=== PATIENT | female | born 1940 | race Two or more races ===

== ENCOUNTER 2017-11-22 08:34 | Outpatient (CLI) | payer OTHER | END 2017-11-22 10:42 | disposition home or self-care (01) | LOC: RAD 501 08:34 | DX: H25.13 Age-related nuclear cataract, bilateral (principal) ==

== ENCOUNTER 2019-05-10 10:15 | Outpatient (CLI) | payer OTHER | END 2019-05-10 10:22 | disposition home or self-care (01) | LOC: NUCLEAR 10:15 | DX: C64.2 Malignant neoplasm of left kidney, except renal pelvis (principal); C64.1 Malignant neoplasm of right kidney, except renal pelvis | CPT/HCPCS: 78803; A9503 ==

== ENCOUNTER 2019-06-16 14:26 | Outpatient (CLI) | payer OTHER | END 2019-06-16 14:27 | disposition home or self-care (01) | LOC: RAD 14:26 | DX: Z01.811 Encounter for preprocedural respiratory examination (principal) ==

== ENCOUNTER 2019-10-09 09:04 | Inpatient (IN) | payer OTHER ==
[~2019-10-09] VITALS: Ht 160 cm; Wt 63.5 kg
[2019-10-09] MEDS ORDERED: LEVOTHYROXINE25 MCG (09:13)
--- NOTE | 2019-10-09 09:14 | NUR ---
PTE REFIERE TENER DOLOR ABDOMINAL DIARREAS Y TAMBIEM PROBLEMAS CON LA ORINA.
[2019-10-09] MEDS ORDERED: LIPITOR 10MG (09:19)
--- NOTE | 2019-10-09 09:47 | NUR ---
PACIENTE ALERTA Y ORIENTADA EN [place] ESFERAS, RN L.KIM MALLY MUESTRAS DE [place] BAJO MEDIDAS ASEPTICAS Y CULTIVO DE [place] BAJO MEDIDAS ESTERILES. CANALIZA PACIENTE EN BRAZO NAMAN ANGIO 22 BAJO MEDIDAS ASEPTICAS, PATENTE LEÓN DE EDEMA Y ENROJECIMIENTO. SE ORIENTA PACIENTE A RUMA CULTIVOS DE [place] Y A RUMA CONTRASTE POR BOCA Y NOTIFICAR AL TERMINAR LA MISMA INDICA ENTENDER. PACIENTE BAJO OBSERVACION POR CAMBIOS.
--- NOTE | 2019-10-09 12:23 | NUR ---
DR. UPTON REEVALUA PTE. Y SE ORIENTA SOBRE TRATAMIENTO Y MEDICAMENTOS LOS CUALES SE ADM. IDALIA ORDEN MEDICA Y CONSULTA NOTIFICADA A DR. LEANDRA VAZQUEZ POR DR. UPTON.
--- NOTE | 2019-10-09 15:54 | NUR ---
PACIENTE FEMINA ALERTA Y ORIENTADA DEVIDAMENTE IDENTIFICADA EN COMPANIA DE FAMILIAR. SE RE ORIENTA SOBRE EL TRATAMIENTO ORDENADO POR EL MEDICO LA MISMA REFIERE ENTENDER. CONSULTADA CON JESS VAZQUEZ PARA DETERMINAR SI VA SER ADMITIDA. PACIENTE ESTABLE DENTRO DE FONSECA CONDICION Y SE MATHEW PRIVACIDAD Y SEGURIDAD EN TODO MOMENTO.
[2019-10-12] MEDS ORDERED: METRONIDAZOLE500 MG (14:37)
[2019-10-12] MEDS ORDERED: CIPROFLOXACIN750 MG (14:37)
[2019-10-20] MEDS ORDERED: FLAGYL500MG PO (17:04)
[2019-10-20] MEDS ORDERED: Lipitor 10MG TABLET PO (17:04)
[2019-10-20] MEDS ORDERED: LEVOTHYROXINE25 MCG PO (17:04)
[2019-10-20] MEDS ORDERED: INTESTINEX680 M1 PO (17:04)
[2019-10-20] MEDS ORDERED: PEPCID AC20 MG PO (17:04)
[2019-10-20] MEDS ORDERED: LEVAQUIN750 MG PO (17:04)
== END 2019-10-20 18:07 | disposition home or self-care (01) | DRG 392 ==
LOC: ER 09:04 → SURH 17:09 → SEC-K 17:09 → MEDI 17:09 → SURH 10-10 01:03 → MEDI 10-10 14:40
PROVIDERS: ADMIT Internal Medicine; ATTEND Internal Medicine
PROC: 8E0ZXY6 Isolation (ICD-10-PCS; principal; 2019-10-09)
DX: K57.32 Diverticulitis of large intestine without perforation or abscess without bleeding (principal); N39.0 Urinary tract infection, site not specified; C77.5 Secondary and unspecified malignant neoplasm of intrapelvic lymph nodes; R19.09 Other intra-abdominal and pelvic swelling, mass and lump; Z85.528 Personal history of other malignant neoplasm of kidney; D63.0 Anemia in neoplastic disease; E86.0 Dehydration; K42.9 Umbilical hernia without obstruction or gangrene

== ENCOUNTER 2019-12-14 13:25 | Inpatient (IN) | payer OTHER ==
[~2019-12-14] VITALS: Ht 160 cm; Wt 62.6 kg
[~2019-12-14 13:25] MED LIST: CIPROFLOXACIN750 MG; FLAGYL500MG PO; INTESTINEX680 M1 PO; LEVAQUIN750 MG PO; LEVOTHYROXINE25 MCG; LEVOTHYROXINE25 MCG PO; LIPITOR 10MG; Lipitor 10MG TABLET PO; METRONIDAZOLE500 MG; PEPCID AC20 MG PO
[2019-12-14] MEDS ORDERED: CIPRO500 MG (14:05)
[2019-12-14] MEDS ORDERED: TOPROL XL25 M1 (14:06)
[2019-12-14] MEDS ORDERED: RYTARY ER 23.71 EACH (14:06)
--- NOTE | 2019-12-14 14:19 | NUR ---
PTE REFIERE ABSSESO EN AREA DEL ABDOMEN SE JOYCE S/V YSE UBIAC EN AREA DE OBSERVACION
[2019-12-18] MEDS ORDERED: CARBIDOPA-LEVO1 EA10 (09:00)
== END 2019-12-18 14:52 | disposition home or self-care (01) | DRG 392 ==
LOC: ER 13:25 → SEC-K 15:49 → SURG 17:03 → SURH 12-15 16:47
PROVIDERS: ADMIT Surgery; ATTEND Surgery
PROC: 0W9H30Z Drainage of Retroperitoneum with Drainage Device, Percutaneous Approach (ICD-10-PCS; principal; 2019-12-15)
DX: K57.20 Diverticulitis of large intestine with perforation and abscess without bleeding (principal); E03.9 Hypothyroidism, unspecified; I10 Essential (primary) hypertension; Z85.528 Personal history of other malignant neoplasm of kidney; Z90.5 Acquired absence of kidney; Z20.828 Contact with and (suspected) exposure to other viral communicable diseases; B95.2 Enterococcus as the cause of diseases classified elsewhere

== ENCOUNTER 2019-12-22 11:58 | Outpatient (CLI) | payer OTHER ==
[~2019-12-22 11:58] MED LIST changes: +CARBIDOPA-LEVO1 EA10; +CIPRO500 MG; +RYTARY ER 23.71 EACH; +TOPROL XL25 M1
== END 2019-12-22 12:06 | disposition home or self-care (01) ==
LOC: LAB 11:58
PROVIDERS: ATTEND Surgery
DX: K57.20 Diverticulitis of large intestine with perforation and abscess without bleeding (principal); K43.0 Incisional hernia with obstruction, without gangrene; K43.2 Incisional hernia without obstruction or gangrene

== ENCOUNTER 2020-05-07 08:00 | Outpatient (CLI) | payer OTHER | END 2020-05-07 18:00 | disposition home or self-care (01) | LOC: PPH VACUNA 08:00 | PROVIDERS: ATTEND Emergency Medicine Pediatric Emergency Medicine | DX: Z23 Encounter for immunization (principal) ==

== ENCOUNTER 2021-01-21 08:00 | Outpatient (CLI) | payer OTHER | END 2021-01-21 08:30 | disposition home or self-care (01) | LOC: PPH VACUNA 08:00 | PROVIDERS: ATTEND Emergency Medicine Pediatric Emergency Medicine | DX: Z23 Encounter for immunization (principal) ==

== ENCOUNTER 2021-02-06 10:12 | Outpatient (CLI) | payer OTHER | END 2021-02-06 10:22 | disposition home or self-care (01) | LOC: RAD 10:12 | DX: I10 Essential (primary) hypertension (principal); Z01.811 Encounter for preprocedural respiratory examination ==

== ENCOUNTER → 2021-05-30 | Outpatient (CLI) | payer OTHER | END | disposition home or self-care (01) | LOC: NUCLEAR 09:52 | PROVIDERS: ATTEND Internal Medicine Sports Medicine | DX: I38 Endocarditis, valve unspecified (principal) ==

== ENCOUNTER 2021-08-19 08:00 | Outpatient (CLI) | payer OTHER | END 2021-08-19 08:30 | disposition home or self-care (01) | LOC: PPH VACUNA 08:00 | PROVIDERS: ATTEND Emergency Medicine Pediatric Emergency Medicine | DX: Z23 Encounter for immunization (principal) ==

== ENCOUNTER 2022-02-04 10:56 | Inpatient (IN) | payer OTHER ==
[~2022-02-04] VITALS: Ht 160 cm; Wt 54.4 kg
[2022-02-06] MEDS ORDERED: SERTRALINE HCL25 MG (09:36)
[2022-02-06] MEDS ORDERED: FAMOTIDINE20 MG (09:36)
[2022-02-06] MEDS ORDERED: CARBIDOPA-LEVO1 EA12 (09:36)
[2022-02-06] MEDS ORDERED: CLONAZEPAM0.5 MG (09:36)
[2022-02-06] MEDS ORDERED: AMANTADINE100 MG (09:37)
[2022-02-06] MEDS ORDERED: MELATONIN5 M2 (09:37)
[2022-02-06] MEDS ORDERED: SIMVASTATIN10 MG (09:37)
[2022-02-06] MEDS ORDERED: LOSARTAN POTASS50 MG (09:37)
[2022-02-10] MEDS ORDERED: LEVOTHYROXINE25 MCG PO (17:03)
[2022-02-10] MEDS ORDERED: POM (MEDICAMENTO EN PO (17:03)
== END 2022-02-10 22:10 | disposition home or self-care (01) | DRG 392 ==
LOC: ICU-2 10:56 → ICU 02-05 20:19 → MEDI 02-06 21:53
PROVIDERS: ADMIT Internal Medicine; ATTEND Internal Medicine
PROC: 4A12X4Z Monitoring of Cardiac Electrical Activity, External Approach (ICD-10-PCS; principal; 2022-02-04)
PROC: BW2110Z Computerized Tomography (CT Scan) of Abdomen and Pelvis using Low Osmolar Contrast, Unenhanced and Enhanced (ICD-10-PCS; 2022-02-07)
DX: K59.81 Ogilvie syndrome (principal); G20 Parkinson's disease; K57.30 Diverticulosis of large intestine without perforation or abscess without bleeding; R53.81 Other malaise; G24.9 Dystonia, unspecified; I10 Essential (primary) hypertension; K59.09 Other constipation; K31.84 Gastroparesis; K42.9 Umbilical hernia without obstruction or gangrene

== ENCOUNTER 2022-03-25 13:42 | Outpatient (CLI) | payer OTHER ==
[~2022-03-25 13:42] MED LIST changes: +AMANTADINE100 MG; +CARBIDOPA-LEVO1 EA12; +CLONAZEPAM0.5 MG; +FAMOTIDINE20 MG; +LOSARTAN POTASS50 MG; +MELATONIN5 M2; +POM (MEDICAMENTO EN PO; +SERTRALINE HCL25 MG; +SIMVASTATIN10 MG
== END 2022-03-25 13:52 | disposition home or self-care (01) ==
LOC: PPH VACUNA 13:42
PROVIDERS: ATTEND Emergency Medicine Pediatric Emergency Medicine
DX: Z23 Encounter for immunization (principal)

== ENCOUNTER 2022-05-05 10:50 | Inpatient (IN) | payer OTHER ==
[~2022-05-05] VITALS: Ht 160 cm; Wt 53.1 kg
[~2022-05-05 10:50] MED LIST changes: +LINZESS145 MCG PO
[2022-05-11] MEDS ORDERED: SERTRALINE HCL50 MG (10:04)
[2022-05-11] MEDS ORDERED: CARBIDOPA-LEVO1 EAC1 (10:04)
[2022-05-11] MEDS ORDERED: METOCLOPRAMIDE10 MG (10:04)
[2022-05-11] MEDS ORDERED: METOPROLOL SUCC25 MG (10:04)
[2022-05-19] MEDS ORDERED: POM (MEDICAMENTO EN PO (11:28)
[2022-05-19] MEDS ORDERED: Neurin-Sl Tablet Sl SL (11:28)
[2022-05-19] MEDS ORDERED: INTEGRA PLUS C1 EACH PO (11:28)
[2022-05-19] MEDS ORDERED: SERTRALINE HCL50 MG PO (11:28)
[2022-05-19] MEDS ORDERED: FOLIC ACID1 MG PO (11:28)
[2022-05-19] MEDS ORDERED: CHOLESTYRAMINE P4 GM PO (11:28)
== END 2022-05-19 23:02 | disposition home or self-care (01) | DRG 330 ==
LOC: MEDI 10:50 → O/R 05-07 10:11 → SURH 05-08 15:49
PROVIDERS: Surgery; ADMIT Internal Medicine; ATTEND Internal Medicine
PROC: 0DTN0ZZ Resection of Sigmoid Colon, Open Approach (ICD-10-PCS; 2022-05-06)
PROC: 0DBP0ZZ Excision of Rectum, Open Approach (ICD-10-PCS; 2022-05-06)
PROC: 0DTJ0ZZ Resection of Appendix, Open Approach (ICD-10-PCS; 2022-05-06)
PROC: 0D9H8ZZ Drainage of Cecum, Via Natural or Artificial Opening Endoscopic (ICD-10-PCS; 2022-05-06)
PROC: 0WQF0ZZ Repair Abdominal Wall, Open Approach (ICD-10-PCS; 2022-05-06)
PROC: 02HV33Z Insertion of Infusion Device into Superior Vena Cava, Percutaneous Approach (ICD-10-PCS; 2022-05-06)
PROC: 0D1M0Z4 Bypass Descending Colon to Cutaneous, Open Approach (ICD-10-PCS; principal; 2022-05-06 14:00)
PROC: 05HY33Z Insertion of Infusion Device into Upper Vein, Percutaneous Approach (ICD-10-PCS; 2022-05-11)
DX: K56.691 Other complete intestinal obstruction (principal); C18.9 Malignant neoplasm of colon, unspecified; N39.0 Urinary tract infection, site not specified; K43.9 Ventral hernia without obstruction or gangrene; G20 Parkinson's disease; K59.00 Constipation, unspecified; K59.81 Ogilvie syndrome; E87.6 Hypokalemia; I73.9 Peripheral vascular disease, unspecified

== ENCOUNTER 2022-08-03 10:40 | Outpatient (CLI) | payer OTHER ==
[~2022-08-03 10:40] MED LIST changes: +CARBIDOPA-LEVO1 EAC1; +CHOLESTYRAMINE P4 GM PO; +FOLIC ACID1 MG PO; +INTEGRA PLUS C1 EACH PO; +METOCLOPRAMIDE10 MG; +METOPROLOL SUCC25 MG; +Neurin-Sl Tablet Sl SL; +SERTRALINE HCL50 MG; +SERTRALINE HCL50 MG PO
== END 2022-08-03 10:43 | disposition home or self-care (01) ==
LOC: NUCLEAR 10:40
PROVIDERS: ATTEND Internal Medicine Sports Medicine
DX: I82.409 Acute embolism and thrombosis of unspecified deep veins of unspecified lower extremity (principal); R60.0 Localized edema

== ENCOUNTER 2022-11-02 05:45 | Day surgery (SDC) | payer OTHER | END 2022-11-02 11:35 | disposition home or self-care (01) | LOC: AMB-ENDOS 05:45 | PROVIDERS: ATTEND Surgery | DX: K57.30 Diverticulosis of large intestine without perforation or abscess without bleeding (principal); K57.20 Diverticulitis of large intestine with perforation and abscess without bleeding; Z93.3 Colostomy status; K43.2 Incisional hernia without obstruction or gangrene; I82.502 Chronic embolism and thrombosis of unspecified deep veins of left lower extremity; Z20.822 Contact with and (suspected) exposure to COVID-19 ==

== ENCOUNTER 2023-01-01 09:59 | Inpatient (IN) | payer OTHER ==
[~2023-01-01] VITALS: Ht 162.6 cm; Wt 49.9 kg
[2023-01-04 10:31] LABS: URINE APPEARANCE Clear; URINE BILIRRUBIN Small (NEGATIVE); URINE BLOOD Negative; URINE COLOR Orange; URINE GLUCOSE Negative (NEGATIVE); URINE LEUKOCYTE Moderate; URINE NITRATE Positive; URINE PROTEIN 30 (NEGATIVE); URINE UROBILINOGEN 0.2 E.U./dl
[2023-01-04 10:33] LABS: URINE BACTERIA 175.2 uL (0.0-1933); URINE EPITHELIAL CELLS 16.1 uL (0.0-38.8); URINE RBC 23.5 uL (0.0-20.8); URINE WBC 239.9 uL (0.0-23.2)
[2023-01-04 10:41] LABS: HEMATOCRIT 37.6 % (36.0-45.00); MEAN CELL VOLUME 94.5 fL (80.00-100.00); MEAN CORPUSCULAR HEMOGLOBIN 32.6 pg (27.00-32.0); MEAN CORPUSCULAR HGB CONC 34.5 g/dl (32.0-36.0); PLATELET COUNT 260 K/uL (150-450); RED BLOOD COUNT 3.98 M/uL (4.00-6.00); RED CELL DISTRIBUTION WIDTH 14.3 % (11.5-14.5)
[2023-01-04 11:10] LABS: ALBUMIN 3.9 gm/dL (3.4-5.0); BILIRUBIN TOTAL 0.65 mg/dL (0.3-1.2); CALCIUM 9.1 mg/dL (8.5-10.1); GFR 53.21; GLOBULINA 3.6 G/DL (2.4-3.5); POTASSIUM 4.62 mEq/L (3.5-5.1); TOTAL PROTEIN 7.5 gm/dL (6.4-8.2)
[2023-01-04 11:11] LABS: PARTIAL THROMBOPLASTIN TIME 24.4 SECONDS (22.0-34.0); PROTHROMBIN TIME 10.5 SECONDS (9.0-11.5)
[2023-01-04 11:24] LABS: URINE CRYSTALS FEW /HPF
[2023-01-11] MEDS ORDERED: CARBIDOPA-LEVO1 EAC8 (13:06)
[2023-01-11] MEDS ORDERED: ABANEU-SL TABL1 EACH (13:07)
[2023-01-11 17:34] LABS: HEMATOCRIT 37.7 % (36.0-45.00); HEMOGLOBIN 12.5 g/dL (12.0-15.00); MEAN CELL VOLUME 94.8 fL (80.00-100.00); MEAN CORPUSCULAR HEMOGLOBIN 31.5 pg (27.00-32.0); MEAN CORPUSCULAR HGB CONC 33.2 g/dl (32.0-36.0); PLATELET COUNT 235 K/uL (150-450); RED BLOOD COUNT 3.97 M/uL (4.00-6.00); RED CELL DISTRIBUTION WIDTH 14.1 % (11.5-14.5)
[2023-01-12 07:20] LABS: HEMATOCRIT 37.9 % (36.0-45.00); HEMOGLOBIN 12.6 g/dL (12.0-15.00); MEAN CELL VOLUME 96.3 fL (80.00-100.00); MEAN CORPUSCULAR HGB CONC 33.2 g/dl (32.0-36.0); PLATELET COUNT 247 K/uL (150-450); RED BLOOD COUNT 3.93 M/uL (4.00-6.00)
[2023-01-12 07:51] LABS: ALBUMIN 3.6 gm/dL (3.4-5.0); CALCIUM 8.6 mg/dL (8.5-10.1); CREATININE SERUM 0.91 mg/dL (0.55-1.02); GFR 59.33; PHOSPHOROUS 3.9 mg/dL (2.5-4.9); POTASSIUM 3.97 mEq/L (3.5-5.1)
[2023-01-14] MEDS ORDERED: HYOSCYAMINE0.125 M1 SL (11:53)
[2023-01-14] MEDS ORDERED: INTESTINEX680 M1 PO (11:54)
== END 2023-01-14 13:17 | disposition home or self-care (01) | DRG 330 ==
LOC: O/R 01-11 08:21 → SURH 01-11 08:21 → RECOVERY 01-11 08:45 → SURH 01-11 16:47
PROVIDERS: ADMIT Surgery; ATTEND Surgery
PROC: 0DN84ZZ Release Small Intestine, Percutaneous Endoscopic Approach (ICD-10-PCS; 2023-01-11)
PROC: 4A1BXSH Monitoring of Gastrointestinal Vascular Perfusion using Indocyanine Green Dye, External Approach (ICD-10-PCS; 2023-01-11)
PROC: 0DJD8ZZ Inspection of Lower Intestinal Tract, Via Natural or Artificial Opening Endoscopic (ICD-10-PCS; 2023-01-11)
PROC: 0DBM4ZZ Excision of Descending Colon, Percutaneous Endoscopic Approach (ICD-10-PCS; principal; 2023-01-11 12:15)
DX: Z43.3 Encounter for attention to colostomy (principal); I82.502 Chronic embolism and thrombosis of unspecified deep veins of left lower extremity; K57.20 Diverticulitis of large intestine with perforation and abscess without bleeding; K43.2 Incisional hernia without obstruction or gangrene; N99.4 Postprocedural pelvic peritoneal adhesions; G20 Parkinson's disease; N73.6 Female pelvic peritoneal adhesions (postinfective); E78.5 Hyperlipidemia, unspecified